=== PATIENT | female | born 1950 | race Caucasian/White ===

== ENCOUNTER 2018-11-27 18:08 | Inpatient (IN) | payer BC ==
[2018-11-27] MEDS ORDERED: NS 0.9% 1000 ML** 2,000 ML IV ONE (18:55)
--- NOTE | 2018-11-27 19:03 | ED ---
Neurological HPI - HPI Summary HPI Summary: A 68 y/o female presents to [facility] with a chief complaint of general weakness. She also reports dizziness, fatigue and a low sodium level. She claims that she can barely walk due to her weakness. She also reports leg swelling, SOB, nausea and loss of appetite. She denies abdominal pain, CP or vomiting. Because of her blood work, she was told to come to the ED for Lasix IV and admission. She has a Hx of CHF. Her PCP is Dr. Tong, and Dr. Wilson is her logistics intern, who ordered the blood test. She lives with her . She reports that she has not had a problem retaining water that was this severe before. - History of Current Complaint Chief Complaint: EDWeakness Stated Complaint: DR SENT FOR SODIUM LEVEL PER PT Time Seen by Provider: 11/27/18 18:55 Hx Obtained From: Patient Onset/Duration: Sudden Onset, Started days ago, Still Present Timing: Constant Onset Severity: Mild Current Severity: Mild Neurological Deficit Location: Generalized Pain Intensity: 0 Pain Scale Used: 0-10 Numeric Character: Weak Aggravating: Nothing Alleviating: Nothing Associated Signs and Symptoms: Positive: Shortness of Breath. Negative: Fever, Chest Pain - Allergy/Home Medications Allergies/Adverse Reactions: Allergies Allergy/AdvReac Type Severity Reaction Status Date / Time codeine Allergy Nausea And Verified 11/27/18 18:14 Vomiting erythromycin base Allergy Vomiting Verified 11/27/18 18:14 latex Allergy Rash Verified 11/27/18 18:14 Penicillins Allergy Vomiting Verified 11/27/18 18:14 [id number]-[id number]-Drl Reductase Allergy Itching Verified 11/27/18 18:14 Inhibitor PMH/Surg Hx/FS Hx/Imm Hx Endocrine/Hematology History: Denies: Hx Diabetes Cardiovascular History: Denies: Hx Hypertension, Hx Pacemaker/ICD History: Denies: Hx Renal Disease Sensory History: Reports: Hx Hearing Aid Denies: Hx Deafness Psychiatric History: Denies: Hx Panic Disorder - Cancer History Hx Chemotherapy: No Hx Radiation Therapy: No - Surgical History Surgery Procedure, Year, and Place: FACIAL - COSMETIC BREAST REDUCTIONS TUBAL LIGATION TONSILECTOMY FIBROIDS - REMOVED FROM UTERUS Infectious Disease History: No Infectious Disease History: Denies: Traveled Outside the [place] in Last 30 Days - Family History Known Family History: Positive: Cardiac Disease - father and mother - Social History Alcohol Use: None Hx Substance Use: No Substance Use Type: Reports: None Hx Tobacco Use: No Smoking Status (MU): Unknown if Ever Smoked Review of Systems Positive: Fatigue. Negative: Fever Negative: Chest Pain Positive: Shortness Of Breath. Negative: Cough Positive: Nausea. Negative: Abdominal Pain, Vomiting Positive: Edema Neurological: Other - positive: dizziness Positive: Weakness All Other Systems Reviewed And Are Negative: Yes Physical Exam - Summary Physical Exam Summary: Appearance: Well-appearing, Well-nourished, lying in bed comfortably Skin: Warm, dry, no obvious rash Eyes: sclera anicteric, no conjunctival pallor ENT: mucous membranes moist, pharynx appears normal Neck: Supple, nontender Respiratory: Clear to auscultation, no signs of respiratory distress Cardiovascular: Normal S1, S2. No murmurs. Normal distal pulses in tibial and radial bilaterally. Abdomen: Soft, nontender, normal active bowel sounds present Musculoskeletal: Normal, Strength/ROM Intact, significant lower extremity pitting edema up to knees. Neurological: A&Ox3, awake and alert, mentation is normal, speech is fluent and appropriate Psychiatric: affect is normal, does not appear anxious or depressed Triage Information Reviewed: Yes Vital Signs On Initial Exam: Initial Vitals Temp Pulse Resp BP Pulse Ox 98.8 F 87 20 83/64 100 11/27/18 18:11 11/27/18 18:11 11/27/18 18:11 11/27/18 18:11 11/27/18 18:11 Vital Signs Reviewed: Yes Diagnostics - Vital Signs Vital Signs Temp Pulse Resp BP Pulse Ox 11/27/18 18:11 98.8 F 87 20 83/64 100 - Laboratory Result Diagrams: 12/01/18 04:53 11/30/18 14:48 Lab Statement: Any lab studies that have been ordered have been reviewed, and results considered in the medical decision making process. - Radiology CXR Radiology Interpretation Completed By: ED Physician Summary of Radiographic Findings: Cardiomegaly. Bilateral small pleural effusions. Mildly diffuse interstitial markings in both lung [place]. Pending official imaging report. - EKG 19:31 Cardiac Rate: NL - 81 bpm EKG Rhythm: Sinus Rhythm Summary of EKG Findings: EKG at 19:31 showed NSR at 81 bpm with PAVB and LBBB. Course/Dx - Course Course Of Treatment: A 68 y/o female presents to [facility] with a chief complaint of general weakness. She also reports dizziness, fatigue, nausea, SOB, edema and a low sodium level. The physical exam revealed significant lower extremity pitting edema up to the knees. In the ED course the patient was given sodium chloride IV and Lasix IV. EKG at 19:31 showed NSR at 81 bpm with PAVB and LBBB. Troponin 0.01, TSH 4.33. CXR showed Cardiomegaly. Bilateral small pleural effusions. Mildly diffuse interstitial markings in both lung [place]. Case discussed with Dr. Gunn, hospitalist, who accepted the patient for admission. The patient is agreeable with this plan. - Diagnoses Provider Diagnoses: Congestive heart failure, Hyponatremia - Physician Notifications Discussed Care Of Patient With: Camryn Gunn Time Discussed With Above Provider: 20:40 Instructed by Provider To: Admit As Inpatient - Critical Care Time Critical Care Time: 30-74 min Discharge - Sign-Out/Discharge Documenting (check all that apply): Patient Departure - admit Patient Received Moderate/Deep Sedation with Procedure: No - Discharge Plan Condition: Fair Disposition: ADMITTED TO [facility] - Billing Disposition and Condition Condition: FAIR Disposition: Admitted to [facility] - Attestation Statements Document Initiated by Scribe: Yes Documenting Scribe: Lalo Dejesus Provider For Whom Rupert is Documenting (Include Credential): London Hendricks MD Scribdontae Attestation: Lalo Manuel, scribed for London Hendricks MD on 12/01/18 at 0539. Scribe Documentation Reviewed: Yes Provider Attestation: The documentation as recorded by the Lalo esquivel accurately reflects the service I personally performed and the decisions made by me, London Hendricks MD Status of Scribe Document: Viewed
[2018-11-27 19:52] LABS: Troponin I 0.01 ng/mL (<0.04)
[2018-11-27 20:10] LABS: TSH (Thyroid Stimulating Horm) 4.33 mcIU/mL (0.34-5.60)
[2018-11-27] MEDS ORDERED: Sodium Chloride 3% HYPERTONIC* 500 ML IVPB ONE ×2 (20:15→21:00)
[2018-11-27] MEDS ORDERED: Furosemide IV* 10 MG/ML VIAL (40 MG) IV ONE (20:16)
[2018-11-27 22:22] LABS: BUN/Creatinine Ratio 23.2 (8-20); Calcium 9.2 mg/dL (8.6-10.3); EGFR Non-African American 58.7 (>60); Potassium 4.4 mmol/L (3.5-5.0)
[2018-11-27] MEDS ORDERED: Acetaminophen TAB* 325 MG PO PRN (22:24)
[2018-11-27 22:27] LABS: Urine Appearance Cloudy; Urine Bacteria Absent (Absent); Urine Bilirubin Negative (Negative); Urine Blood Negative (Negative); Urine Color Straw; Urine Glucose Negative (Negative); Urine Ketones Negative (Negative); Urine Nitrite Negative (Negative); Urine Protein Negative (Negative); Urine Red Blood Cell Trace(0-2/hpf) (Absent); Urine Specific Gravity 1.004 (1.010-1.030); Urine Squamous Epithelial Cell Present (Absent); Urine Urobilinogen Negative (Negative); Urine White Blood Cell Trace(0-5/hpf) (Absent)
[2018-11-27 22:40] LABS: Ur Urea Nitrogen Concentration 142 mg/dL; Urine Sodium Concentration 49 mmol/L
[2018-11-28] MEDS ORDERED: Sodium Chloride 3% HYPERTONIC* 500 ML IVPB ONE (00:01)
[2018-11-28 01:01] LABS: ABS Basophils 0 10^3/ul (0-0.2); ABS Eosinophils 0 10^3/ul (0-0.6); ABS Lymphocytes 0.7 10^3/ul (1.0-4.8); ABS Monocytes 0.5 10^3/ul (0-0.8); ABS Neutrophils 4.5 10^3/ul (1.5-7.7); ABS Nucleated RBC 0 10^3/ul; Eosinophil % 0.6 %; Hematocrit 43 % (33-41); Hemoglobin 14.4 g/dL (12.0-16.0); Lymphocyte % 12.4 %; Mean Corpuscular HGB Conc 33 g/dL (31-36); Mean Corpuscular Hemoglobin 33 pg (27-31); Mean Corpuscular Volume 97 fL (80-97); Mean Platelet Volume 8.8 fL (7.4-10.4); Nucleated Red Blood Cells % 0.1; Platelet Count 183 10^3/uL (150-450); Red Blood Count 4.42 10^6 /uL (3.70-4.87); Red Cell Distribution Width 13 % (10.5-15); White Blood Count 5.7 10^3/uL (3.5-10.8)
[2018-11-28] MEDS: Enoxaparin(*) 40 MG/0.4 ML SYR SUBCUT SCH ×2 (01:11→21:58)
[2018-11-28] MEDS: Potassium Chlor TAB* 20 MEQ TAB.ER PO SCH ×3 (01:13→14:57)
--- NOTE | 2018-11-28 02:41 | HP ---
HISTORY AND PHYSICAL: DATE OF ADMISSION: 11/27/18 PRIMARY CARE PROVIDER: Dick Tong MD MANAGEMENT SERVICES TECHNICIAN: Devendra Flaherty MD CONTACT PERSONS: Patient's daughters, Janneth Weaver, phone number [phone] and Melissa Corey, . CODE STATUS: Full. CHIEF COMPLAINT: Weakness. SOURCE OF INFORMATION: HPI is obtained from the patient and review of medical charts. The patient is a fair to poor historian. HISTORY OF PRESENT ILLNESS: A 68-year-old female with a past medical history of non-ischemic cardiomyopathy, thought to be from hyperthyroidism (medication induced) versus viral with an ejection fraction of 15%, currently not with ICD , mild AI, severe MR, hypothyroidism, who presents with weakness, really subacute for the past 2 to 3 weeks. The patient reports that she has had progressive weakness and actually says she has had intermittent use of her torsemide. She stopped taking her torsemide sometime last week except for one dose over the weekend and she thought that it would "affect the result of her blood work that her cardiologists were asking her to get". She said what looks like chronic hyponatremia associated with her heart failure and has had a difficult time finding an outpatient regimen for it. Nonetheless, she went to get her blood draw today. The sodium was 118, her seismometer operator called her and told her to present to the emergency room for further management. The patient does report weakness, fatigue, and has had increasing volume overload, particularly in her lower extremities. Her weight about 3 weeks ago was 126 pounds and she has been steadily increasing. She is currently at 144 pounds today. She denies shortness of breath. She denies wilman chest pain. Her appetite has been slightly reduced but no nausea, vomiting, diarrhea, or abdominal pain. She denies orthopnea, although sleeps with 2 pillows. No palpitations. ER COURSE: In the emergency room, her vital signs are blood pressure of 83/64, temperature of 98.8, heart rate of 87 sinus, and respiratory rate of 15, and 100 % on room air. Chest x-ray was done, which shows a small left and right pleural effusions at the bases and perivascular cuffing and mild edema. Repeat lab was done that showed sodium level of 115, potassium 4.4, creatinine 0.95. Glucose 110. The patient is A and O x3 and asymptomatic other than weakness. An EKG was done, which showed left bundle-branch block, sinus and frequent VPCs. Troponin is flat. She was given hypertonic saline, 50 mL over 1 hour and started on hypertonic saline gtt after Cardiology was consulted and the hospitalist team was asked to admit the patient. PAST MEDICAL HISTORY: 1. Non-ischemic cardiomyopathy with an ejection fraction of 15% without ICD. 2. Left bundle-branch block. 3. Mild AI. 4. Severe MR. 5. Hypothyroidism. 6. IBS. 7. Spinal stenosis. 8. Chronic regional pain syndrome. PAST SURGICAL HISTORY: 1. Rotator cuff repair. 2. Breast reduction. 3. Fibroid resection. MEDICATIONS: 1. Vitamin B12 of 2500 mcg IM q. 12 days. 2. Diphenhydramine 50 mg p.o. q.h.s. 3. Carvedilol 9.375 mg p.o. b.i.d. 4. Zetia 10 mg p.o. daily. 5. Levothyroxine 112 mcg p.o. daily. 6. Spironolactone 25 mg p.o. daily. 7. Valsartan 20 mg p.o. daily. 8. She should be taking torsemide 10 mg daily, although as per HPI, she stopped taking this sometime last week, only taking it one time on Monday prior to her admission on Monday and "when she feels like it" ALLERGIES: CODEINE, ERYTHROMYCIN, LATEX, PENICILLIN, and STATIN. FAMILY HISTORY: Positive for heart disease in both parents. SOCIAL HISTORY: She is . She lives at home with her and 2 children under the age of 18. 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 She is a lifetime nonsmoker. Social alcohol user with only 1 to 2 weeks per month and a never illicit user. REVIEW OF SYSTEMS: Constitutional: Positive for malaise, negative for fevers and chills. HEENT: Negative for headaches, vision changes, sore throat. Cardiovascular: Negative for chest pain, palpitations, positive for orthopnea. Respiratory: Negative for shortness of breath, cough, or pleuritic chest pain. GI: Negative for nausea, vomiting, diarrhea, abdominal pain. Does have decreased appetite. : Negative for dysuria, hematuria. Musculoskeletal: Negative for new myalgias or arthralgias. Does have chronic low back pain. Positive for weakness. Skin: Negative for rashes or lesions: Neurologic: Negative for focal weakness or numbness. Psychiatric: Negative for depression and anxiety. Endocrine: Negative for polyuria, polydipsia. Heme: Negative for bruising, bleeding, lymphadenopathy. PHYSICAL EXAMINATION GENERAL APPEARANCE: Pleasant, well-appearing woman, in no acute distress, sitting up in bed. She has significant anxiety and perseverates multiple times during our interview on questions about management and did well with redirection. She is A and O x4. VITAL SIGNS: At the time of physical exam are 102/74, heart rate 79, respiratory rate 15, satting 99% on room air. HEENT: She is normocephalic, atraumatic. Pupils are equal and reactive. Extraocular muscles are intact. Sclerae are anicteric. Mouth is with moist mucous membranes. NECK: Supple with no supraclavicular or cervical lymphadenopathy. RESPIRATORY: She is clear to auscultation bilaterally with the exception of slightly diminished bases. CARDIAC: She has soft heart sounds, possibly with S3 and soft 1-2/6 murmur, heard best in mid axillary line. ABDOMEN: Belly is soft, nontender, nondistended with normoactive bowel sounds. NEUROLOGIC: Cranial nerves II through XII are intact. No focal deficits. A and O x3. MUSCULOSKELETAL: She moves all 4 extremities spontaneously. EXTREMITIES: She has 3+ nonpitting edema to bilateral knees with particular edema to dorsal foot surface. She has compression stockings on. SKIN: Without rashes or lesions. DIAGNOSTIC STUDIES/LAB DATA: BMP done here in the hospital is sodium 115, potassium 4.4, chloride 84, carbon dioxide 21, anion gap 10, BUN 22, creatinine 0.95. Glucose 110. Troponin 0.01. TSH 4.33. CBC is pending. EKG shows sinus rhythm with frequent VPCs, left bundle-branch block, which is consistent with prior. Chest x-ray shows small bilateral pleural effusions, perivascular cuffing, otherwise no acute findings. Imaging, labs, and EKG reviewed by myself. ASSESSMENT AND PLAN: This is a 68-year-old female with heart failure with reduced ejection fraction secondary to nonischemic cardiomyopathy with an EF of 15%, valvular disease, hypothyroidism, who presents with weakness, found to be with heart failure exacerbation secondary to diuretic noncompliance and hypervolemic hyponatremia, severe, asymptomatic. 1. Severe hyponatremia, hypervolemic in nature and the patient is asymptomatic. She will be placed on a hypertonic saline drip with a goal of improving sodium by 4 to 6 mEq in the first 4 to 6 hours. She is asymptomatic, so no bolus is started. We will check sodium levels q.4 hours and we will also start diuresis with Lasix along with potassium supplementation. Furthermore, fluid restriction to 1 L will be initiated and can augment diuresis with metolazone p.r.n. A cardiology consult will be placed and the patient will be admitted to the intensive care unit given need for hypertonic saline drip. When sodium improves to 4 to 6 units above 115s, so roughly around 122, possible to manage her with fluid restriction alone and concurrent diuretic use. 2. Heart failure with reduced ejection fraction exacerbation as above. Fluid restriction, low-sodium diet and diuresis. She is roughly 20 pounds above her base weight. Heart failure with reduced ejection fraction secondary to nonischemic cardiomyopathy. 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 Discussed with the patient that cardiac resynchronization therapy would be indicated and she is willing to consider. 3. Hypothyroidism. We will continue her home dose of Synthroid. 4. Back pain and chronic regional pain syndrome. We will offer Tylenol and escalate pain control as needed. 5. DVT prophylaxis. The patient will be given Lovenox. 6. Diet is low salt with 1 L fluid restriction. 7. Disposition. The patient is stable for admission to the intensive care unit for hypertonic saline drip and frequent sodium monitoring. 8. Code status is full. TIME SPENT: Forty-five minutes was spent in the planning of this admission with over half of that spent directly at the bedside with the patient providing direct patient care. The plan of care was discussed with the patient, which includes admission the ICU, careful monitoring over the next 24 hours, and evaluation with Cardiology. She understands and has no further questions. [id number]/CPS #: [id number]
[2018-11-28 04:37] LABS: Calcium 7.7 mg/dL (8.6-10.3); EGFR African American 78.6 (>60); EGFR Non-African American 64.9 (>60)
[2018-11-28] MEDS ORDERED: Furosemide IV* 10 MG/ML VIAL (40 MG) IV SCH ×2 (05:00→06:00)
[2018-11-28] MEDS: Levothyroxine TAB* 112 MCG TAB PO SCH (06:31)
[2018-11-28] MEDS ORDERED: Valsartan TAB* 40 MG PO SCH (09:00)
[2018-11-28] MEDS ORDERED: Spironolactone TAB* 25 MG PO SCH (09:00)
--- NOTE | 2018-11-28 10:07 | PN ---
Date of Service: 11/28/18 - HD 2 Critical Care Services: 68 yo F with CHF, HTN, DM presents to the hospital on 11/27 with complaints of generalized weakness, dizziness, fatigue. She had outpatient blood work with showed a low sodium level and she was told to go to the ED. On evaluation she was hemodynamically stable. Physical exam unremarkable except for lower extremity pitting edema up to knees. Na level 115. She was given Lasix and started on 3% NS gtt. She was admitted to ICU. 11/28: Na corrected to 124 by morning. 3%NS drip stopped. Vital Signs: Temp Pulse Resp BP SpO2 FiO2 97.2 F 87 23 102/57 96 11/28/18 08:00 11/28/18 09:01 11/28/18 09:01 11/28/18 09:01 11/28/18 09:00 Physical Exam: Gen: resting in bed HEENT: intact Lungs: nonlabored Cardiac: RRR Abdomen: nondistended Extremities: warm, dry Neuro: sleeping Fluid Balance (Past 24 Hours): I= O= Net Intake & Output 11/26/18 11/27/18 11/28/18 11/29/18 06:59 06:59 06:59 06:59 Intake Total 577 300 Output Total 700 1100 Balance -123 -800 Weight 154 lb 5.177 oz Intake: IVPB 227 Oral 350 300 Output: Urine 700 1100 Labs: Laboratory Results - last 24 hr 11/27/18 11/27/18 11/27/18 19:27 21:58 22:10 WBC RBC Hgb Hct MCV MCH MCHC RDW Plt Count MPV Neut % (Auto) Lymph % (Auto) [place] % (Auto) Eos % (Auto) Baso % (Auto) Absolute Neuts (auto) Absolute Lymphs (auto) Absolute Monos (auto) Absolute Eos (auto) Absolute Basos (auto) Absolute Nucleated RBC Nucleated RBC % Sodium 115 L* Potassium 4.4 Chloride 84 L Carbon Dioxide 21 L Anion Gap 10 BUN 22 Creatinine 0.95 Est GFR ( Amer) 71.0 Est GFR (Non-Af Amer) 58.7 BUN/Creatinine Ratio 23.2 H Glucose 110 H Lactic Acid Calcium 9.2 Troponin I 0.01 TSH 4.33 Urine Color Straw Urine Appearance Cloudy Urine pH 6.0 Ur Specific [place] 1.004 L Urine Protein Negative Urine Ketones Negative Urine Blood Negative Urine Nitrate Negative Urine Bilirubin Negative Urine Urobilinogen Negative Ur Leukocyte Esterase Trace A Urine WBC (Auto) Trace(0-5/hpf) Urine RBC (Auto) Trace(0-2/hpf) Ur Squamous Epith Cells Present A Urine Bacteria Absent Hyaline Casts Present A U Sodium Concentration Ur Urea Nitrogen Conc Urine Glucose Negative 11/27/18 11/28/18 11/28/18 22:10 00:50 00:50 WBC 5.7 RBC 4.42 Hgb 14.4 Hct 43 H MCV 97 MCH 33 H MCHC 33 RDW 13 Plt Count 183 MPV 8.8 Neut % (Auto) 78.3 Lymph % (Auto) 12.4 [place] % (Auto) 8.3 Eos % (Auto) 0.6 Baso % (Auto) 0.4 Absolute Neuts (auto) 4.5 Absolute Lymphs (auto) 0.7 L Absolute Monos (auto) 0.5 Absolute Eos (auto) 0 Absolute Basos (auto) 0 Absolute Nucleated RBC 0 Nucleated RBC % 0.1 Sodium 118 L* Potassium Chloride Carbon Dioxide Anion Gap BUN Creatinine Est GFR ( Amer) Est GFR (Non-Af Amer) BUN/Creatinine Ratio Glucose Lactic Acid Calcium Troponin I TSH Urine Color Urine Appearance Urine pH Ur Specific [place] Urine Protein Urine Ketones Urine Blood Urine Nitrate Urine Bilirubin Urine Urobilinogen Ur Leukocyte Esterase Urine WBC (Auto) Urine RBC (Auto) Ur Squamous Epith Cells Urine Bacteria Hyaline Casts U Sodium Concentration 49 Ur Urea Nitrogen Conc 142 Urine Glucose 11/28/18 11/28/18 04:11 04:11 WBC RBC Hgb Hct MCV MCH MCHC RDW Plt Count MPV Neut % (Auto) Lymph % (Auto) [place] % (Auto) Eos % (Auto) Baso % (Auto) Absolute Neuts (auto) Absolute Lymphs (auto) Absolute Monos (auto) Absolute Eos (auto) Absolute Basos (auto) Absolute Nucleated RBC Nucleated RBC % Sodium 124 L Potassium 3.0 L Chloride 94 L Carbon Dioxide 25 Anion Gap 5 BUN 20 Creatinine 0.87 Est GFR ( Amer) 78.6 Est GFR (Non-Af Amer) 64.9 BUN/Creatinine Ratio 23.0 H Glucose 100 Lactic Acid 1.0 Calcium 7.7 L Troponin I TSH Urine Color Urine Appearance Urine pH Ur Specific [place] Urine Protein Urine Ketones Urine Blood Urine Nitrate Urine Bilirubin Urine Urobilinogen Ur Leukocyte Esterase Urine WBC (Auto) Urine RBC (Auto) Ur Squamous Epith Cells Urine Bacteria Hyaline Casts U Sodium Concentration Ur Urea Nitrogen Conc Urine Glucose Studies: 11/27 cXR - CHF Nutrition: cardiac diet Impression: 68 yo F with HTN, DM and CHF admitted for hyponatremia. Plan: Cardiovascular:(1) Benign essential HTN, (2) Chronic CHF; (3) AICD in situ -- HR 55-93 -- SBP 67-106 -- Telemetry -- Carvediolol, Valsartan, spironolactone -- Ezetimibe Home meds: Ezetimibe, Carvediolol, Valsartan, spironolactone Pulmonary: No acute issues -- RR 11-24 -- sats 90-100 on RA -- CXR: CHF Home meds: None Gastrointestinal: No acute issues -- diet: cardiac diet -- bowel regimen: None -- ulcer prophylaxis: not indicated at this time Home meds:None Endocrine: Diabetes mellitus -- monitor BGs -- Synthroid Home meds: None Renal: (1) Hypokalemia; (2) Hypocalcemia; (3) Hypervolemia -- UOP: 92 ml/hr -- Cr 0.87 -- Lytes Na 124 from 118 K 3.0, replace Ca 7.7, replace -- Kdur -- Spironolactone -- received lasix x 1 in ED Home meds: None Infectious disease: No acute issues -- Tmax 98.8 -- WBC 5.7 -- Micro 5/1 MRSA screen negative 11/27 UA negative -- ABX None Home meds: None Neurologic: No acute issues -- PRN Tylenol Home meds: Benadryl Hematological: No acute issues -- Hgb 14.4 -- Plt 183 -- DVT prophylaxis: SQ Lovenox Home meds: None Metabolic: No acute issues Home meds: None Other:No acute issues Home meds: Vit B12 Deep vein thrombosis prophylaxis: SQ Lovenox Dietary: not indicated at this time Condition: stable Prognosis: good Code status: full Disposition: transfer to floor Cumulative time spent in the care of this patient (excluding any procedure time) : at least 30 minutes. Patient care included clinical interview (with patient and/or family), bedside exam of the patient, review of labs, x-rays, and other ancillary data, coordination of (respiratory, nursing care, review of patient's records, discussion regarding patients management with involved consultants, primary physician, pharmacists, and other healthcare personnel (dietary, case management , physical/occupational therapy etc.) Critical Care Time: 30 min
[2018-11-28] MEDS: Carvedilol TAB* 6.25 MG PO SCH ×2 (11:32→22:09)
[2018-11-28] MEDS: Ezetimibe TAB* 10 MG PO SCH (11:33)
[2018-11-28 13:58] LABS: BUN/Creatinine Ratio 19.2 (8-20); Calcium 9.2 mg/dL (8.6-10.3); EGFR African American 67.7 (>60); EGFR Non-African American 55.9 (>60)
--- NOTE | 2018-11-28 14:47 | CONS ---
CONSULTATION REPORT: DATE OF CONSULT: 11/28/18 ATTENDING PHYSICIAN: Mandie Rios MD * (DICTATED BY RED HANEY NP) PRIMARY NUTRITION COUNSELOR: Dr. Jc Wilson. PRIMARY PHYSICIAN: Dr. Tong. CHIEF COMPLAINT: Low sodium, shortness of breath, increased leg swelling, and weight gain. HISTORY OF PRESENT ILLNESS: I had the pleasure of seeing Kecia Hannah in consultation. She is a patient well known to myself and Dr. Wilson due to a history of non-ischemic cardiomyopathy, LVEF 19% via echocardiogram, 10/01/18, at [facility], where she was admitted for decompensated systolic dysfunction. She also has a history of severe mitral insufficiency, known complete left bundle branch block, and hypothyroidism. The patient has been experiencing progressive bilateral lower extremity pitting edema with complaints of shortness of breath, weight gain, dizziness, and hyponatremia for the past month. She was seen in our practice on 11/20/18 due to symptomatology. At that point, she had been taking torsemide 10 mg a day with 20 mg daily as needed; however, diuretics were not adjusted at that point due to the need for evaluation of basic metabolic profile. The patient failed to obtain outpatient labs and opted to stop loop diuretic on her own last week. We attempted to contact the patient and bring her in for an emergent visit in our practice on Monday; however, she never returned our phone calls. She had outpatient blood work finally obtained yesterday, which revealed a sodium of 115 , creatinine 0.95. Thus, she was recommended to present to [facility] due to hyponatremia, hypervolemia in the setting of systolic dysfunction with NYHA functional class IV symptoms. The patient received Lasix 40 mg IV x1 and reports gross improvement in bilateral lower extremity edema. She also received NaCl 3% hypertonic drip. Sodium this morning is 124, potassium 3. She denies chest pain. States breathing and leg edema have improved, although she still appreciates some dyspnea and swelling in bilateral lower extremities. The patient had a 15-pound weight gain in the past month. In the past, she has been evaluated by Dr. Wilson, [facility], and Dr. Viera at [facility]. It has been recommended for some time that the patient undergo BiV-ICD; however, she has refused BiV-ICD on numerous occasions citing the desire to have her back evaluated and fixed first before undergoing BiV-ICD implantation. She denies syncope. Does report occasional dizziness. Denies palpitations. Last echocardiogram was 10/01/18 at [facility]. At that time, calculated LVEF was 19%, severe left atrial enlargement, moderate right ventricular enlargement, severe right atrial enlargement, mild aortic insufficiency, no aortic stenosis, no mitral stenosis, severe mitral insufficiency, moderate tricuspid regurgitation. PAST MEDICAL HISTORY: 1. Non-ischemic cardiomyopathy. 2. Severe mitral insufficiency. 3. Complete left bundle branch block. 4. Hypothyroidism. 5. Irritable bowel syndrome. PAST SURGICAL HISTORY: Includes: 1. Breast reduction. 2. Tubal ligation. 3. Tonsillectomy with adenoidectomy. 4. Plastic surgery . 5. Fibroid resection. MEDICATIONS: Home medications include: 1. Coreg 9.375 mg p.o. b.i.d. 2. Valsartan 20 mg a day. 3. Synthroid 112 mcg daily. 4. Zetia 10 mg a day. 5. Torsemide 10 mg daily. 6. Compression stockings. 7. Aldactone 25 mg a day. 8. Vitamin B12 as directed. 9. Coenzyme Q10 100 mg daily ALLERGIES: Listed includes: 1. PENICILLIN, which causes hives. 2. ERYTHROMYCIN causes GI upset. 3. CODEINE causes GI upset. 4. , rash. 5. IODINE, rash. 6. BEE STINGS, hives. 7. SULFA, GI upset. 8. TETRACYCLINE, GI upset. 9. MYCIN, GI upset. 10. MORPHINE, GI upset. 11. AZITHROMYCIN, diarrhea. 12. TORADOL, headache. FAMILY HISTORY: Noncontributory. SOCIAL HISTORY: The patient is , lives at home with her , who is a neurologist practicing in [facility]. 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 She denies tobacco, alcohol, or drug abuse. She ambulates independently. REVIEW OF SYSTEMS: All systems have been reviewed and otherwise negative except what is above mentioned in the HPI. PHYSICAL EXAM: The patient is lying in bed upon entering the room, cooperative with exam, is alert and oriented, in no apparent distress. HEENT: Head is atraumatic, normocephalic. Oral mucosa is moist. Tongue is midline. Neck: Supple. Trachea is midline. No thyromegaly. Positive JVD. Cardiac: Normal S1, S2. Regular rate and rhythm. There is a notable mitral murmur. No rub. Positive gallop. Lungs: Auscultated posteriorly. No evidence of adventitious breath sounds, diminished in bilateral bases, right greater than left. /GI: Abdomen is soft, nontender. Normoactive bowel sounds x4. Extremities: 1+ pedal edema noted bilaterally. Otherwise, no clubbing, no cyanosis. Compression stockings are on bilaterally. Skin: Intact. No evidence of jaundice, rashes, ecchymosis appreciated. DIAGNOSTIC STUDIES/LAB DATA: Blood work obtained 11/28/18, sodium 124, potassium 3, chloride 94, carbon dioxide 25, BUN 20, creatinine 0.87, glucose 100. TSH 4.3. Troponin negative x1. White count 5.7, hemoglobin 14.4, hematocrit 43, platelets 183. ECG, 11/27/18, sinus rhythm with known left bundle branch block, isolated PVC, rate 81. Chest x-ray demonstrates cardiomegaly with right greater than left pleural effusions. ASSESSMENT AND PLAN: 1. Severe left ventricular dysfunction with known history of non-ischemic cardiomyopathy, left ventricular ejection fraction calculated at 19% on echo at [facility], 10/01/18. NYHA functional class IV symptomatology. She is presenting with hyponatremic hypervolemia. Recommend continuing gentle IV diuresis with Lasix 40 mg IV daily. Close monitoring of sodium and potassium. The patient is responding to IV diuresis. She states shortness of breath and swelling is improving. Recommend daily weights with strict intake, output, continuation of Coreg at 9.375 mg p.o. b.i.d., valsartan 20 mg a day, Aldactone 25 mg a day. In the past, the patient has refused Entresto therapy and BiV-ICD. She states that she now is interested in having cardiac resynchronization therapy, thus we will place referral to [facility], where she was previously evaluated in September 2018. She has also refused LifeVest in the past. She does have occasional premature ventricular contractions on telemetry. She is not symptomatic. No evidence of ventricular tachycardia. We will place order for LifeVest. She is interested in potentially going home with LifeVest; however, she would like to speak to the rep first. I personally called and spoke to Torsten Mazariegos, who is agreeable to coming in tomorrow to review LifeVest with the patient. We will follow closely. 2. Severe mitral insufficiency. The patient is on carvedilol therapy, unable to titrate further due to hypotension. Recommend gentle diuresis. The patient has refused BiV-ICD in the past. She states that she is now interested in pursuing cardiac resynchronization therapy. Thus, we will place order through [facility] for the patient to be evaluated at [facility] where she was previously evaluated and recommended to have BiV-ICD. 3. Hyponatremia. Sodium improved today. Defer to hospitalist service. 4. Hypokalemia. The patient is on oral potassium supplement. We will update BMP at noon today. 5. Disposition. Pending course. The patient is full code. We will follow closely. Dr. Rios agrees with the above assessment and plan and has personally seen and examined the patient. RED HANEY NP [id number]/CPS #: [id number] BABAK
[2018-11-28] MEDS ORDERED: Albumin Human 25%* 25 GM/100 ML BTL IV ONE (16:02)
--- NOTE | 2018-11-28 17:01 | PN ---
Cardiology Progress Note Date of Service: 11/28/18 - CC: weakness See full consultation by Celina Young DRY YARD WORKER. The patient states weakness has improved. The patient was surprised to hear her BP was so low. Appetite is good. Vital Signs - 12 hr Temp Pulse Resp BP Pulse Ox 11/28/18 15:55 14 11/28/18 15:20 20 11/28/18 15:01 83 14 52/35 87 11/28/18 15:00 6 55/40 11/28/18 14:03 87 21 80/52 93 11/28/18 14:02 18 67/43 11/28/18 14:00 85 18 59/42 91 11/28/18 13:34 98.3 F 11/28/18 13:00 17 88/55 11/28/18 12:18 9 83/55 11/28/18 12:01 20 11/28/18 12:00 20 11/28/18 11:08 30 86/58 11/28/18 11:01 75 14 98 11/28/18 11:00 14 11/28/18 10:00 93 20 98 11/28/18 09:01 87 23 102/57 11/28/18 09:00 82 20 96 11/28/18 08:30 89 18 96/68 97 11/28/18 08:15 67 17 92/60 98 11/28/18 08:00 97.2 F 69 21 86/53 98 11/28/18 07:45 73 16 87/47 98 ADLs: Meal Record Start: 11/28/18 00: 38 Freq: 09,13,18 Status: Active Protocol: Created 11/28/18 00:38 System (Rec: 11/28/18 00:38 System [id number]) Document 11/28/18 09:00 [id number] (Rec: 11/28/18 09:07 [id number] ICU-C25) Document 11/28/18 13:00 [id number] (Rec: 11/28/18 13:18 [id number] ICU-C25) Intake and Output Start: 11/27/18 18: 14 Freq: Status: Active Protocol: Created 11/27/18 18:14 System (Rec: 11/27/18 18:14 System [id number]) Intake and Output Start: 11/28/18 00: 38 Freq: Q1HR Status: Active Protocol: Created 11/28/18 00:38 System (Rec: 11/28/18 00:38 System ICU-M23) Document 11/28/18 01:00 [id number] (Rec: 11/28/18 02:00 [id number] ICU-M32) Document 11/28/18 03:00 [id number] (Rec: 11/28/18 03:28 [id number] ICU-M32) Document 11/28/18 07:25 [id number] (Rec: 11/28/18 07:25 [id number] ICU-C25) Document 11/28/18 08:32 [id number] (Rec: 11/28/18 08:32 [id number] ICU-C11) Document 11/28/18 09:34 [id number] (Rec: 11/28/18 09:34 [id number] ICU-C25) Document 11/28/18 11:00 [id number] (Rec: 11/28/18 11:12 [id number] ICU-C25) Document 11/28/18 12:00 [id number] (Rec: 11/28/18 12:11 [id number] ICU-C25) Document 11/28/18 13:00 [id number] (Rec: 11/28/18 13:30 [id number] ICU-C25) Document 11/28/18 15:00 [id number] (Rec: 11/28/18 15:57 [id number] ICU-C07) Document 11/28/18 15:58 [id number] (Rec: 11/28/18 15:59 [id number] ICU-C07) P 11/28/18 07:31 66 14 102/46 99 11/28/18 07:15 83 20 104/56 98 11/28/18 07:00 62 14 80/56 94 11/28/18 06:45 67 14 90/58 95 11/28/18 06:30 82 19 94/63 76 11/28/18 06:15 61 11 89/60 98 11/28/18 06:00 67 22 82/62 99 11/28/18 05:45 61 13 88/60 98 11/28/18 05:30 60 13 83/52 97 11/28/18 05:15 59 14 84/54 96 Per nursing 2 L UO today. General: Awoke from sleep, appears comfortable and healthier than her studies. Psych: pleasant and cooperative. Neuro: AAO x 3, [place], grossly normal sensory and motor function on bed exam. Resp: Diminshed BS lung bases. Cor: Distant, S1S2 regular, no murmurs heard Abd: normal bowel sounds, soft, non tender. Ext: Mild edema Laboratory Results - last 24 hr 11/27/18 11/27/18 11/27/18 19:27 21:58 22:10 WBC RBC Hgb Hct MCV MCH MCHC RDW Plt Count MPV Neut % (Auto) Lymph % (Auto) Robeson % (Auto) Eos % (Auto) Baso % (Auto) Absolute Neuts (auto) Absolute Lymphs (auto) Absolute Monos (auto) Absolute Eos (auto) Absolute Basos (auto) Absolute Nucleated RBC Nucleated RBC % Sodium 115 L* Potassium 4.4 Chloride 84 L Carbon Dioxide 21 L Anion Gap 10 BUN 22 Creatinine 0.95 Est GFR ( Amer) 71.0 Est GFR (Non-Af Amer) 58.7 BUN/Creatinine Ratio 23.2 H Glucose 110 H Lactic Acid Calcium 9.2 Troponin I 0.01 TSH 4.33 Urine Color Straw Urine Appearance Cloudy Urine pH 6.0 Ur Specific [place] 1.004 L Urine Protein Negative Urine Ketones Negative Urine Blood Negative Urine Nitrate Negative Urine Bilirubin Negative Urine Urobilinogen Negative Ur Leukocyte Esterase Trace A Urine WBC (Auto) Trace(0-5/hpf) Urine RBC (Auto) Trace(0-2/hpf) Ur Squamous Epith Cells Present A Urine Bacteria Absent Hyaline Casts Present A U Sodium Concentration Ur Urea Nitrogen Conc Urine Glucose Negative 11/27/18 11/28/18 11/28/18 22:10 00:50 00:50 WBC 5.7 RBC 4.42 Hgb 14.4 Hct 43 H MCV 97 MCH 33 H MCHC 33 RDW 13 Plt Count 183 MPV 8.8 Neut % (Auto) 78.3 Lymph % (Auto) 12.4 Robeson % (Auto) 8.3 Eos % (Auto) 0.6 Baso % (Auto) 0.4 Absolute Neuts (auto) 4.5 Absolute Lymphs (auto) 0.7 L Absolute Monos (auto) 0.5 Absolute Eos (auto) 0 Absolute Basos (auto) 0 Absolute Nucleated RBC 0 Nucleated RBC % 0.1 Sodium 118 L* Potassium Chloride Carbon Dioxide Anion Gap BUN Creatinine Est GFR ( Amer) Est GFR (Non-Af Amer) BUN/Creatinine Ratio Glucose Lactic Acid Calcium Troponin I TSH Urine Color Urine Appearance Urine pH Ur Specific [place] Urine Protein Urine Ketones Urine Blood Urine Nitrate Urine Bilirubin Urine Urobilinogen Ur Leukocyte Esterase Urine WBC (Auto) Urine RBC (Auto) Ur Squamous Epith Cells Urine Bacteria Hyaline Casts U Sodium Concentration 49 Ur Urea Nitrogen Conc 142 Urine Glucose 11/28/18 11/28/18 11/28/18 04:11 04:11 13:10 WBC RBC Hgb Hct MCV MCH MCHC RDW Plt Count MPV Neut % (Auto) Lymph % (Auto) Robeson % (Auto) Eos % (Auto) Baso % (Auto) Absolute Neuts (auto) Absolute Lymphs (auto) Absolute Monos (auto) Absolute Eos (auto) Absolute Basos (auto) Absolute Nucleated RBC Nucleated RBC % Sodium 124 L 125 L Potassium 3.0 L 4.0 Chloride 94 L 90 L Carbon Dioxide 25 26 Anion Gap 5 9 BUN 20 19 Creatinine 0.87 0.99 H Est GFR ( Amer) 78.6 67.7 Est GFR (Non-Af Amer) 64.9 55.9 BUN/Creatinine Ratio 23.0 H 19.2 Glucose 100 93 Lactic Acid 1.0 Calcium 7.7 L 9.2 Troponin I TSH Urine Color Urine Appearance Urine pH Ur Specific [place] Urine Protein Urine Ketones Urine Blood Urine Nitrate Urine Bilirubin Urine Urobilinogen Ur Leukocyte Esterase Urine WBC (Auto) Urine RBC (Auto) Ur Squamous Epith Cells Urine Bacteria Hyaline Casts U Sodium Concentration Ur Urea Nitrogen Conc Urine Glucose ECG: NSR 1st degree AVB, LBBB, monitor shows intermittant slow SVT and occ. PVC 's. Echo: [place] September 2018: EF 19%, RV hypokinesis, severe MR, mod - sev TR A/P 68 yo female with nonischemic CM, biventricular CM, MR, TR battling chronic CHF who to date has declined GLOBAL REGULATORY LEAD device. The patient was admitted with increasing RH failure by history and severe hyponatremia on Aldactone, Torsemide in addition to Coreg and Diovan. Possible adjustments in diuretics by the patient, but the patient states to me all adjustments she makes are via instructions from her certified orthotist practice manager and his team. Pt's sodium has improved with hypertonic saline and IV lasix, but bp's have dropped further (and confirmed with manual cuff). Cardiogenic shock: I stopped diuretics. Hold Diovan PRN sbp< 85 sustained (manual cuff). Try to continue Coreg due to PVC's and sVT Hyponatremia: Etiology a combination of CHF iteself and medications. I recommend stopping aldactone indefinitely for now. Will likely need a loop diuretic on discharge, but follow Na+ levels frequently and I would titrate to SOB not LE edema. I informed the patient of the danger of hyponatremia, that it could be life threatening, she states she was made aware of this and understands. CM: I recommended transfer to [place] ([place] for GLOBAL REGULATORY LEAD device and consultation + treatment of cardiogenic shock via CHF specialists now. The patient declined, she is waiting for her daughters to come to [facility] in 2 weeks to assist with her young twins care. I discussed with the patient that I was concerned we would not be able to stabilize her adequately to go home w/o GLOBAL REGULATORY LEAD. I do not think that the patient realizes the degree of her CM and valvular heart disease although she states she understands that she now doesn't have a choice on GLOBAL REGULATORY LEAD. Complex high risk patient at risk for sudden , worsening CHF, shock and recurrent hyponatremia.
[2018-11-28] MEDS ORDERED: Carvedilol TAB* 3.125 MG PO ONE (21:52)
[2018-11-28] MEDS: diPHENhydraMINE PO* 50 MG PO SCH (22:53)
[2018-11-29] MEDS: Levothyroxine TAB* 112 MCG TAB PO SCH (04:07)
[2018-11-29 04:34] LABS: Hematocrit 39 % (35-47); Hemoglobin 13.2 g/dL (12.0-16.0); Mean Corpuscular HGB Conc 34 g/dL (31-36); Mean Corpuscular Hemoglobin 33 pg (27-31); Mean Corpuscular Volume 97 fL (80-97); Mean Platelet Volume 8.6 fL (7.4-10.4); Platelet Count 161 10^3/uL (150-450); Red Blood Count 4.02 10^6 /uL (3.70-4.87); Red Cell Distribution Width 14 % (10.5-15); White Blood Count 4.5 10^3/uL (3.5-10.8)
[2018-11-29 05:06] LABS: Calcium 8.9 mg/dL (8.6-10.3); EGFR African American 75.6 (>60); EGFR Non-African American 62.5 (>60); Potassium 3.6 mmol/L (3.5-5.0)
--- NOTE | 2018-11-29 08:02 | PN ---
Date of Service: 11/29/18 - HD 3 Critical Care Services: 68 yo F with CHF, HTN, DM presents to the hospital on 11/27 with complaints of generalized weakness, dizziness, fatigue. She had outpatient blood work with showed a low sodium level and she was told to go to the ED. On evaluation she was hemodynamically stable. Physical exam unremarkable except for lower extremity pitting edema up to knees. Na level 115. She was given Lasix and started on 3% NS gtt. She was admitted to ICU. 11/28: Na corrected to 124 by morning. 3% NS drip stopped. She developed cardiogenic shock that evening. Seen by cardiology and recommended direct transfer to [place] for AICD/pacemaker but patient refused and wants to go as outpatient. 11/29: No overnight events. Remains hypotensive with SBP in 70s but asymptomatic. Vital Signs: Temp Pulse Resp BP SpO2 FiO2 98.5 F 81 13 77/57 97 11/28/18 23:47 11/29/18 06:36 11/29/18 06:36 11/29/18 06:36 11/29/18 06:36 Physical Exam: Gen: sitting up talking on phone HEENT: intact Lungs: nonlabored Cardiac: RRR Abdomen: nondistended Extremities: moving equally Neuro: alert, oriented Fluid Balance (Past 24 Hours): I= O= Net Intake & Output 11/27/18 11/28/18 11/29/18 11/30/18 06:59 06:59 06:59 06:59 Intake Total 577 1030 Output Total 700 3475 Balance -123 -2445 Weight 154 lb 5.177 oz 141 lb Intake: IVPB 227 Oral 350 1030 Output: Urine 700 3475 Labs: Laboratory Results - last 24 hr 11/28/18 11/29/18 11/29/18 13:10 04:20 04:20 WBC 4.5 RBC 4.02 Hgb 13.2 Hct 39 MCV 97 MCH 33 H MCHC 34 RDW 14 Plt Count 161 MPV 8.6 Sodium 125 L 127 L Potassium 4.0 3.6 Chloride 90 L 94 L Carbon Dioxide 26 24 Anion Gap 9 9 BUN 19 18 Creatinine 0.99 H 0.90 Est GFR ( Amer) 67.7 75.6 Est GFR (Non-Af Amer) 55.9 62.5 BUN/Creatinine Ratio 19.2 20.0 Glucose 93 95 Calcium 9.2 8.9 Studies: 11/27 CXR - CHF Nutrition: heart healthy diet Impression: 68 yo F with HTN, DM and CHF admitted for hyponatremia. Now with cardiogenic shock. Plan: Cardiovascular:(1) Cardiongeic shock; (2) Acute on chronic systolic CHF; (3) hx of Benign essential HTN -- HR 61-105 -- SBP 52-102 -- Telemetry -- Carvediolol -- Ezetimibe Home meds: Ezetimibe, Carvediolol, Valsartan, spironolactone Pulmonary: No acute issues -- RR 6-30 -- sats 82-99 on RA -- CXR: CHF Home meds: None Gastrointestinal: No acute issues -- diet: cardiac diet -- bowel regimen: None -- ulcer prophylaxis: not indicated at this time Home meds:None Endocrine: (1) Diabetes mellitus -- monitor BGs -- Synthroid Home meds: None Renal: (1) Hyponatremia, improving; (2) Hypokalemia, resolved; (3) Hypocalcemia , resolved; (4) Hypervolemia -- UOP: 145 ml/hr -- Cr 0.90 -- Lytes Na 127 from 125 K 3.6 Ca 8.9 -- Kdur -- Spironolactone discontinued by cardiology and not to restart at discharge given severe hyponatremia Home meds: None Infectious disease: No acute issues -- Tmax 98.8 -- WBC 4.5 from 5.7 -- Micro 5/1 MRSA screen negative 11/27 UA negative -- ABX None Home meds: None Neurologic: No acute issues -- PRN Tylenol -- Benadryl at night Home meds: Benadryl Hematological: No acute issues -- Hgb 13.2 from 14.4 -- Plt 161 from 183 -- DVT prophylaxis: SQ Lovenox Home meds: None Metabolic: No acute issues Home meds: None Other: No acute issues Home meds: Vit B12 Deep vein thrombosis prophylaxis: SQ Lovenox Dietary: not indicated at this time Condition: serious Prognosis: guarded Code status: full Disposition: currently refusing direct transfer. Cumulative time spent in the care of this patient (excluding any procedure time) : at least 30 minutes. Patient care included clinical interview (with patient and/or family), bedside exam of the patient, review of labs, x-rays, and other ancillary data, coordination of (respiratory, nursing care, review of patient's records, discussion regarding patients management with involved consultants, primary physician, pharmacists, and other healthcare personnel (dietary, case management , physical/occupational therapy etc.) Critical Care Time: 30 min
[2018-11-29] MEDS: Carvedilol TAB* 6.25 MG PO SCH ×2 (09:49→20:43)
[2018-11-29] MEDS: Ezetimibe TAB* 10 MG PO SCH (09:49)
[2018-11-29] MEDS: Enoxaparin(*) 40 MG/0.4 ML SYR SUBCUT SCH (20:43)
[2018-11-29] MEDS: diPHENhydraMINE PO* 50 MG PO SCH (20:43)
[2018-11-30] MEDS: Levothyroxine TAB* 112 MCG TAB PO SCH (05:27)
[2018-11-30 07:28] LABS: Hematocrit 43 % (35-47); Hemoglobin 14.4 g/dL (12.0-16.0); Mean Corpuscular HGB Conc 34 g/dL (31-36); Mean Corpuscular Hemoglobin 33 pg (27-31); Mean Corpuscular Volume 97 fL (80-97); Mean Platelet Volume 8.8 fL (7.4-10.4); Platelet Count 183 10^3/uL (150-450); Red Blood Count 4.43 10^6 /uL (3.70-4.87); Red Cell Distribution Width 14 % (10.5-15); White Blood Count 6.3 10^3/uL (3.5-10.8)
[2018-11-30 07:44] LABS: BUN/Creatinine Ratio 20.7 (8-20); Blood Urea Nitrogen 18 mg/dL (6-24); CO2 Carbon Dioxide 21 mmol/L (22-32); Calcium 8.8 mg/dL (8.6-10.3); Chloride 94 mmol/L (101-111); EGFR African American 78.6 (>60); EGFR Non-African American 64.9 (>60); Glucose 114 mg/dL (70-100); Sodium 125 mmol/L (135-145)
[2018-11-30 09:27] LABS: Anion Gap 10 mmol/L (2-11)
[2018-11-30] MEDS: Ezetimibe TAB* 10 MG PO SCH (10:00)
[2018-11-30] MEDS: Carvedilol TAB* 6.25 MG PO SCH ×2 (10:00→21:00)
--- NOTE | 2018-11-30 15:56 | PN ---
Subjective Date of Service: 11/30/18 Interval History: Kecia feels terrible. She complains of nausea, weakness, and exhaustion from getting dressed. She complains of overwhelming anxiety. When I bring up things like a lifevest, she is unwilling to even discuss. Objective Active Medications: Acetaminophen (Tylenol Tab*) 650 mg PO Q6H PRN PRN Reason: FEVER/PAIN Last Admin: 11/28/18 01:13 Dose: 650 mg Carvedilol (Coreg Tab*) 9.375 mg PO BID [facility] Last Admin: 11/30/18 10:00 Dose: 9.375 mg Diphenhydramine HCl (Benadryl Po*) 50 mg PO BEDTIME [facility] Last Admin: 11/29/18 20:43 Dose: 50 mg Ezetimibe (Zetia Tab*) 10 mg PO DAILY [facility] Last Admin: 11/30/18 10:00 Dose: 10 mg Enoxaparin Sodium (Lovenox(*)) 40 mg SUBCUT BEDTIME [facility] Last Admin: 11/29/18 20:43 Dose: 40 mg Levothyroxine Sodium (Synthroid Tab*) 112 mcg PO DAILY@0600 [facility] Last Admin: 11/30/18 05:27 Dose: 112 mcg Torsemide (Demadex*) 10 mg PO DAILY [facility] Vital Signs - 8 hr 11/30/18 11/30/18 08:00 11:17 Temperature 97.9 F Pulse Rate 88 Respiratory 18 19 Rate Blood Pressure 72/54 (mmHg) O2 Sat by Pulse 97 Oximetry Oxygen Devices in Use Now: None Appearance: ill appearing, sitting on the edge of the bed leaning over her table Eyes: No Scleral Icterus Ears/Nose/Mouth/Throat: NL Teeth, Lips, Gums Neck: - - distended jugular veins Respiratory: - - decreased breath sounds both bases, good air movement otherwise Cardiovascular: - - RRR, ?S3 Abdominal: - - mildly distended Lymphatic: No Cervical Adenopathy Extremities: - - 2+ edema to knees Neurological: Alert and Oriented x 3, - - normal gait, walks with me to the hallway and is exhausted when we come back Result Diagrams: 11/30/18 07:15 11/30/18 14:48 Microbiology and Other Data: Microbiology 11/27/18 22:10 Urine Culture - Final Urine 11/28/18 00:50 Nasal Screen MRSA (PCR) - Final Nasal Mrsa Not Detected Assess/Plan/Problems-Billing Assessment: This is a 68 year old female with a NICM with bi-v heart failure and NYHA class IV symptoms who was admitted with acute on chronic hyponatremia and has refused transfer to a higher level of care - Patient Problems (1) Acute on chronic systolic (congestive) heart failure Current Visit: Yes Status: Acute Code(s): I50.23 - ACUTE ON CHRONIC SYSTOLIC (CONGESTIVE) HEART FAILURE SNOMED Code(s): 574237585 Comment: now that potassium has normalized and sodium is back to baseline, will resume torsemide favor observing her overnight while resuming diuretics given recent shock and current bp 70s/50s continue coreg holding arb and aldactone she needs a lifevest and transfer to a higher level of care for cardiac resynchronization therapy and a biv icd but she has refused all of these things I explained that she is at risk of a fatal arrhythmia and she disagrees (2) Hyponatremia Current Visit: Yes Status: Acute Code(s): E87.1 - HYPO-OSMOLALITY AND HYPONATREMIA SNOMED Code(s): 83249260 Comment: hypervolemic improving and back to baseline (3) Anxiety Current Visit: Yes Status: Acute Code(s): F41.9 - ANXIETY DISORDER, UNSPECIFIED SNOMED Code(s): 87252067 Comment: will start ativan
[2018-11-30] MEDS ORDERED: Lorazepam PYXIS KEY PRN (16:03)
[2018-11-30] MEDS ORDERED: LORazepam INJ* 2 MG/ML 1 ML VIAL IV PUSH PRN (16:03)
[2018-11-30] MEDS: Torsemide TAB 10 MG PO SCH (18:38)
[2018-11-30] MEDS ORDERED: LORazepam TAB(*) 1 MG PO PRN (20:25)
[2018-11-30] MEDS: Enoxaparin(*) 40 MG/0.4 ML SYR SUBCUT SCH (21:49)
[2018-11-30] MEDS: diPHENhydraMINE PO* 50 MG PO SCH (21:50)
[2018-12-01] MEDS: Levothyroxine TAB* 112 MCG TAB PO SCH (05:26)
[2018-12-01 05:27] LABS: Hematocrit 41 % (35-47); Hemoglobin 13.6 g/dL (12.0-16.0); Mean Corpuscular HGB Conc 34 g/dL (31-36); Mean Corpuscular Hemoglobin 33 pg (27-31); Mean Corpuscular Volume 97 fL (80-97); Mean Platelet Volume 8.8 fL (7.4-10.4); Platelet Count 162 10^3/uL (150-450); Red Blood Count 4.18 10^6 /uL (3.70-4.87); Red Cell Distribution Width 14 % (10.5-15); White Blood Count 5.6 10^3/uL (3.5-10.8)
[2018-12-01 05:47] LABS: BUN/Creatinine Ratio 24.8 (8-20); Calcium 9.2 mg/dL (8.6-10.3); EGFR African American 66.2 (>60); EGFR Non-African American 54.7 (>60); Magnesium 1.9 mg/dL (1.9-2.7)
[2018-12-01 07:31] VITALS: BP 90/68
[2018-12-01] MEDS: Carvedilol TAB* 6.25 MG PO SCH (07:32)
[2018-12-01] MEDS: Ezetimibe TAB* 10 MG PO SCH (08:41)
[2018-12-01] MEDS: Torsemide TAB 10 MG PO SCH (08:41)
[2018-12-01] MEDS ORDERED: Torsemide TAB 10 MG PO SCH (09:00)
--- NOTE | 2018-12-01 13:29 | DS ---
CC: Dr. Dick Tong; Dr. Rios; Dr. Wilson; Dr. Cuevas; CORINNA Sanon from Cardiology DISCHARGE SUMMARY: DATE OF ADMISSION: 11/27/18 DATE OF DISCHARGE TO HOME: 12/01/18 PRIMARY CARE PROVIDER: Dr. Dick Tong. CONDITION AT DISCHARGE: Improved and stable. DISCHARGE DIAGNOSIS: Hyponatremia due to acute exacerbation of chronic systolic congestive heart david lure. SECONDARY DIAGNOSES: 1. History of nonischemic cardiomyopathy with ejection fraction of 19%. 2. History of severe mitral insufficiency. 3. History of incomplete left bundle-branch block. 4. History of hypothyroidism. 5. History of anxiety. MEDICATIONS AT DISCHARGE: Include: 1. Torsemide 10 mg daily. 2. Levothyroxine 112 mcg daily. 3. Zetia 10 mg daily. 4. Benadryl 50 mg at bedtime. 5. Vitamin B12 2500 mcg IM every 10 to 12 days as previously ordered. 6. Coreg as previously taken at 9.375 mg b.i.d. 7. The patient's Aldactone was discontinued during the hospital stay. 8. The patient's Diovan was held due to low blood pressures at discharge. At discharge, the patient recommended to follow up with sodium level to be obtained in 3 days, on Mon as previously ordered. The patient is also to follow up with Dr. Wilson later on this week with an appointment that is noemy bernal previously scheduled. The patient has an appointment at [facility] on 12/10/[address] acement. The patient will set up with oxygen at 2 L for her to use as needed for shortness of breath. The pat ient was also recommended to follow up with primary care provider Dr. Tong in approximately 4 to 7 d ays. LABORATORY DATA AND STUDIES PERFORMED DURING THE HOSPITAL STAY: Included: Please note that patient's sodium at admission was 115. Today, on 12/01/18, sodium of 122, potassium 4.0, chloride 91, carbon dioxide 20, BUN 25, creatinine 1.01. CBC: White blood cell count of 5.6, hemoglobin of 13.6, hematocrit of 41, and platelets of 162. Portable chest x-ray last obtained on 11/27/18, impression: "Findings suggestive of congestive heart failure." HOSPITALIZATION COURSE: Kecia Hannah is a 68-year-old female with history of nonischemic cardiomyopathy with EF of 19%, who has had problems with compensated heart failure in the past couple of months. S he was hospitalized at [facility]. She came into the hospital after she was noted to have an outpatient lab work with sodium level below 120. She was admitted to the intensive care unit and was treated with 3% saline. Cardiology was consulted with Dr. Rios. The recommendation was to s top patient's Aldactone and hold valsartan if the patient's blood pressure continues to be low. The patient's torsemide was restarted gently with good results, although the patient from time to time wo uld refuse to take torsemide. The patient also had significant amount of anxiety, but had refused A tivan that was ordered. During the patient's hospital stay, the patient was offered to be transferre d [facility] a [facility] for cardiac resynchronization procedure and biventricular pacer. She ref used that. The patient also refused to have a LifeVest throughout her hospital stay and at discharge . She is aware of the risk of sudden cardiac and she opts not to be emergently evaluated for b iventricular pacemaker and not to use LifeVest. Her oxygen saturation is actually good, but I suspec t patient may have desaturation at night. During her hospital stay, we unfortunately did not check h er overnight pulse oximetry which would be good for the patient to have arranged as outpatient. The patient wishes to go home today, she feels well and she wants to follow up with her primary cardiolo gist, Dr. Wilson, this week and the [facility] for biventricular pacer placement on . She was educated about cardiac diet and daily weights. Her weight at discharge is 150 pounds and 9 o unces. Please note that the patient's sodium decreased slightly today comparing with yesterday, but she refused her torsemide dose yesterday. At this point, unfortunately it appears that patient defin itely needs to go to a [facility] for further evaluation and treatment which she adamantly refuses and further hospitalization is in our facility will not bring any better results at this poin t. She appears optimized, but she is very frail overall. She is aware that if her condition gets wo rse, her shortness of breath gets worse or her weight starts increasing, she is to come into the [facility] department for further evaluation. PHYSICAL EXAM AT THE TIME OF DISCHARGE: Blood pressure of 90/68, heart rate of 79 and regular, respi ratory rate 18, oxygen saturation 99% on 2 L oxygen nasal cannula, temperature 97.5. General: The giuseppe nix is pleasant 68-year-old female who is not in acute distress. Alert and oriented x3. HEENT: Head is atraumatic and normocephalic. Eyes: Pupils equal and reactive to light and accommodation. O ropharynx clear. Mucosa moist. Neck: Supple. No bruit. No adenopathy bilaterally. Cardiovascula r: Regular rate and rhythm. No murmurs. Respiratory: Clear to auscultation bilaterally. Abdomen: Soft, nontender. Positive bowel sounds present in all 4 quadrants. Extremities: There is +1 pitti ng pedal edema bilaterally. Pulses are +2 bilaterally. No clubbing or cyanosis. Neuro Evaluation: Speech is clear. Cranial nerves II through XII grossly intact. Motor strength is 5/5 bilaterally. Please also note that the patient is going to be discharged on oxygen to use as needed at 2 L when sh ortness of breath develops. The patient unfortunately did not qualify for oxygen during her hospital stay, but she is able to pay for it out of pocket and that was arranged with [facility] Please also note that the patient's discharge was discussed with Dr. Cuevas from Cardiology Service, w ho agrees with it. Please note that this is a short summary of the patient's hospitalization. Please refer to further edical records for details. TIME SPENT: Approximately 45 minutes was spent on the patient's discharge. [id number]/[facility] #: [id number]
== END 2018-12-01 12:18 | disposition home or self-care (01) | DRG 194 ==
LOC: ED 18:08 → ICU 23:04 → MEDTELE 11-29 12:43
PROVIDERS: ADMIT Internal Medicine; ATTEND Internal Medicine
DX: I11.0 Hypertensive heart disease with heart failure (principal); R57.0 Cardiogenic shock; I47.1 Supraventricular tachycardia; E87.1 Hypo-osmolality and hyponatremia; I50.23 Acute on chronic systolic (congestive) heart failure; I42.8 Other cardiomyopathies; E03.9 Hypothyroidism, unspecified; I44.7 Left bundle-branch block, unspecified; H91.90 Unspecified hearing loss, unspecified ear; F41.9 Anxiety disorder, unspecified; K58.9 Irritable bowel syndrome, unspecified; G89.4 Chronic pain syndrome; M48.00 Spinal stenosis, site unspecified; I08.3 Combined rheumatic disorders of mitral, aortic and tricuspid valves; E87.6 Hypokalemia; E83.51 Hypocalcemia; Z88.5 Allergy status to narcotic agent; Z91.14 Patient's other noncompliance with medication regimen; Z88.0 Allergy status to penicillin; Z88.8 Allergy status to other drugs, medicaments and biological substances; Z88.1 Allergy status to other antibiotic agents; Z91.040 Latex allergy status; Z97.4 Presence of external hearing-aid; Z82.49 Family history of ischemic heart disease and other diseases of the circulatory system; Z98.51 Tubal ligation status
CPT/HCPCS: 36415; 71046; 80048; 81003; 81015; 83605; 83735; 83935; 84132; 84300; 84443; 84484; 84540; 85025; 85027; 87086; 87641; 93005; 99285; A9270-GY; G8978-GP-CK; G8979-GP-CI; J1650; J1940; J2060

== ENCOUNTER 2018-12-04 18:06 | Inpatient (IN) | payer BC ==
--- NOTE | 2018-12-04 18:32 | ED ---
Lower Extremity - HPI Summary HPI Summary: Pt is a 68 y/o F presenting to the ED with a chief complaint of high sodium. She had bloodwork done this morning and was instructed to come to the ED due to her sodium level being at 116. She presently reports weakness and LE edema. She denies headache, blurred vision, and chest pain. She had an MRI of her back yesterday, and is having surgery on 11/10/18 to have a pacemaker placed. - History of Current Complaint Chief Complaint: EDWeakness Stated Complaint: CRITICAL LABS PER PT Time Seen by Provider: 12/04/18 18:21 Hx Obtained From: Patient Mechanism Of Injury: Other - edema, fluid retention Severity Initially: Mild Severity Currently: None Pain Intensity: 0 Pain Scale Used: 0-10 Numeric Timing: Constant, Lasting Days Location: Is Diffuse - lower extremity Associated Signs And Symptoms: Positive: Swelling, Weakness - Allergies/Home Medications Allergies/Adverse Reactions: Allergies Allergy/AdvReac Type Severity Reaction Status Date / Time codeine Allergy Nausea And Verified 11/27/18 18:14 Vomiting erythromycin base Allergy Vomiting Verified 11/27/18 18:14 latex Allergy Rash Verified 11/27/18 18:14 Penicillins Allergy Vomiting Verified 11/27/18 18:14 [id number]-Aty-Ouu Reductase Allergy Itching Verified 11/27/18 18:14 Inhibitor antibiotics Allergy Unknown Uncoded 12/04/18 18:14 Reaction Details PMH/Surg Hx/FS Hx/Imm Hx Previously Healthy: Yes Endocrine/Hematology History: Reports: Hx Thyroid Disease - Hypothyroid Denies: Hx Diabetes Cardiovascular History: Reports: Hx Congestive Heart Failure, Hx Valvular Heart Disease - Severe mitral regurg, Mild aortic insufficiency Denies: Hx Hypertension, Hx Pacemaker/ICD History: Denies: Hx Renal Disease Sensory History: Reports: Hx Hearing Aid Denies: Hx Contacts or Glasses, Hx Deafness Opthamlomology History: Denies: Hx Contacts or Glasses Psychiatric History: Denies: Hx Panic Disorder - Cancer History Hx Chemotherapy: No Hx Radiation Therapy: No - Surgical History Surgery Procedure, Year, and Place: FACIAL - COSMETIC BREAST REDUCTIONS TUBAL LIGATION TONSILECTOMY FIBROIDS - REMOVED FROM UTERUS Infectious Disease History: No Infectious Disease History: Denies: Traveled Outside the [place] in Last 30 Days - Family History Known Family History: Positive: Cardiac Disease - father and mother - Social History Alcohol Use: None Hx Substance Use: No Substance Use Type: Reports: None Hx Tobacco Use: No Smoking Status (MU): Never Smoked Tobacco Review of Systems Negative: Blurred Vision Negative: Chest Pain Positive: Edema Positive: Weakness. Negative: Headache All Other Systems Reviewed And Are Negative: Yes Physical Exam - Summary Physical Exam Summary: VITAL SIGNS: Reviewed. GENERAL: Patient is a well-developed and nourished female who is lying comfortable in the stretcher. Patient is not in any acute respiratory distress. HEAD AND FACE: No signs of trauma. No ecchymosis, hematomas or skull depressions. No sinus tenderness. EYES: PERRLA, EOMI x 2, No injected conjunctiva, no nystagmus. EARS: Hearing grossly intact. Ear canals and tympanic membranes are within normal limits. MOUTH: Oropharynx within normal limits. NECK: Supple, trachea is midline, no adenopathy, no JVD, no carotid bruit, no c- spine tenderness, neck with full ROM. CHEST: Symmetric, no tenderness at palpation LUNGS: Clear to auscultation bilaterally. No wheezing or crackles. CVS: Regular rate and rhythm, S1 and S2 present, no murmurs or gallops appreciated. ABDOMEN: Soft, non-tender. No signs of distention. No rebound no guarding, and no masses palpated. Bowel sounds are normal. EXTREMITIES: FROM in all major joints, no cyanosis or clubbing. Bilateral LE edema. NEURO: Alert and oriented x 3. No acute neurological deficits. Speech is normal and follows commands. SKIN: Dry and warm Triage Information Reviewed: Yes Vital Signs On Initial Exam: Initial Vitals Temp Pulse Resp BP Pulse Ox 97.7 F 69 18 89/59 98 12/04/18 18:11 12/04/18 18:11 12/04/18 18:11 12/04/18 18:11 12/04/18 18:11 Vital Signs Reviewed: Yes Diagnostics - Vital Signs Vital Signs Temp Pulse Resp BP Pulse Ox 12/04/18 18:11 97.7 F 69 18 89/59 98 - Laboratory Result Diagrams: 12/04/18 18:32 12/04/18 18:32 Lab Statement: Any lab studies that have been ordered have been reviewed, and results considered in the medical decision making process. - Radiology CXR Radiology Interpretation Completed By: ED Physician - EKG 1850 Cardiac Rate: NL - 75bpm EKG Rhythm: Sinus Rhythm ST Segment: Normal Ectopy: PACs EKG Comparison: No Significant Change Summary of EKG Findings: EKG at 1850 shows NSR at 75bpm with PACs, no STEMI, and no acute changes from 11/27/18. Lower Extremity Course/Dx - Course Assessment/Plan: This patient is a 68-year-old female who presents to the emergency department with a chief complaint of weakness for which the patient had blood work this morning with her primary care physician. They noticed that her sodium level is low again, therefore they asked her to come to the ED for further workup and management. Patient denies any headache, blurred vision, chest pain or heart palpitations. Denies any abdominal pain nausea vomiting or diarrhea. She has no other complaints. Past medical history significant for CHF, anxiety, hyponatremia. Blood test results without any significant abnormality except for sodium of 116, chloride is 84, anion gap is 12, BUN is 35 , creatinine 1.25, pulse 109, serum osmolality of 260, BNP 1300, globally 1.9 and total protein 5.9 and lipase 101. I discuss my physical exam, findings and test results with Dr. Andrews from the hospitalist services and she agrees to admit patient to her services. Patient is hemodynamically stable alert and oriented x 3. - Diagnoses Provider Diagnoses: Hyponatremia, Renal insufficiency, CHF (congestive heart failure) Discharge - Sign-Out/Discharge Documenting (check all that apply): Patient Departure - Discharge Plan Condition: Stable Disposition: ADMITTED TO [facility] Referrals: Dick Tong MD [Primary Care Provider] - - Billing Disposition and Condition Condition: STABLE Disposition: Admitted to [facility] - Attestation Statements Document Initiated by Rupert: Yes Documenting Scribe: Haley Alvarenga Provider For Whom Rupert is Documenting (Include Credential): Tommy Hager MD. Scribe Attestation: IHaley, hunteribed for Tommy Hager MD. on 12/04/18 at 2100. Scribe Documentation Reviewed: Yes Provider Attestation: The documentation as recorded by the Haley esquivel accurately reflects the service I personally performed and the decisions made by me, Tommy Hager MD. Status of Scribe Document: Viewed Consult Consult: 2001 - I spoke to Dr. Andrews about the pt's present condition who will be admitting the pt to [facility] with dx including hyponatremia and renal insufficiency.
[2018-12-04 19:02] LABS: Hematocrit 43 % (35-47); Hemoglobin 14.4 g/dL (12.0-16.0); Mean Corpuscular HGB Conc 34 g/dL (31-36); Mean Corpuscular Hemoglobin 33 pg (27-31); Mean Corpuscular Volume 96 fL (80-97); Mean Platelet Volume 9.1 fL (7.4-10.4); Platelet Count 182 10^3/uL (150-450); Red Blood Count 4.42 10^6 /uL (3.70-4.87); Red Cell Distribution Width 13 % (10.5-15); White Blood Count 5.8 10^3/uL (3.5-10.8)
[2018-12-04 19:11] LABS: Activated Partial Thrombo Time 28.3 seconds (26.0-36.3); INR 1.3 (0.82-1.09)
[2018-12-04 19:21] LABS: ABS Eosinophils 0.1 10^3/ul (0-0.6); ABS Lymphocytes 0.6 10^3/ul (1.0-4.8); ABS Monocytes 0.5 10^3/ul (0-0.8); ABS Neutrophils 4.6 10^3/ul (1.5-7.7); Albumin/Globulin Ratio 2.1 (1-3); C Reactive Protein 5.68 mg/L (<8.01); Calcium 9.6 mg/dL (8.6-10.3); EGFR African American 51.7 (>60); EGFR Non-African American 42.7 (>60); Eosinophil % 1.3 %; Globulin 1.9 g/dL (2-4); Lymphocyte % 10.2 %; Magnesium 1.9 mg/dL (1.9-2.7); Nucleated Red Blood Cells % 0.1; Potassium 4.3 mmol/L (3.5-5.0); Total Bilirubin 1.2 mg/dL (0.2-1.0); Total Protein 5.9 g/dL (6.4-8.9); Troponin I 0.03 ng/mL (<0.04)
[2018-12-04] MEDS ORDERED: NS 0.9% 1000 ML** 1,000 ML IV SCH (20:30)
[2018-12-04] MEDS ORDERED: Furosemide IV* 10 MG/ML 10 ML VIAL (100 MG) IV ONE (21:07)
[2018-12-04] MEDS ORDERED: Al Hydrox/Mg Hydrox/Simet LIQ* 30 ML UDC PO PRN (21:15)
[2018-12-04] MEDS ORDERED: Ondansetron INJ* 2 MG/ML VIAL IV PRN (21:15)
[2018-12-04] MEDS ORDERED: Acetaminophen TAB* 325 MG PO PRN (21:15)
[2018-12-04 21:58] LABS: TSH (Thyroid Stimulating Horm) 3.74 mcIU/mL (0.34-5.60)
[2018-12-04] MEDS ORDERED: diPHENhydraMINE PO* 50 MG PO PRN (23:19)
[2018-12-04] MEDS: Heparin VIAL(*) 5000 UNITS/ML VIAL (FIVE THOUSAND) SUBCUT SCH (23:32)
[2018-12-04] MEDS: Carvedilol TAB* 6.25 MG PO SCH (23:32)
--- NOTE | 2018-12-04 23:59 | HP ---
CC: Dr. Dick Tong; Dr. Jc Wilson * HISTORY AND PHYSICAL: DATE OF ADMISSION: 12/04/18 TIME OF EVALUATION: 2100 PRIMARY CARE PHYSICIAN: Dick Tong MD. CARDIOLOGY: Jc Wilson MD. CHIEF COMPLAINT: Weakness and abnormal blood work. HISTORY OF PRESENT ILLNESS: This is a 68-year-old female with a past medical history of nonischemic cardiomyopathy with an ejection fraction of 15% with severe MR, who has been followed very closely by the cardiology service and Dr. Wilson, who was recently discharged on 12/01/18 for sodium related to her congestive heart failure, who had a followup BMP today that had a sodium resulted of 116. She was told by the cardiology office to go to the emergency room for further workup. She states since her discharge she continues to be weak. She has been nauseous, fatigued with a headache. She continues to have dyspnea on exertion. No chest pain. No lower extremity cramping. No vomiting or diarrhea. She does not weigh herself daily. She states normally on a good day she weighs 134. Currently, she weighs 145 pounds. Her legs are more swollen. She denies any fevers. No cold. She does have a sore throat. She does admit to missing some doses since her discharge on 12/01/18 because she was so nauseated. She states yesterday, 12/03/18, she went to get an MRI of her back before she is planning to get her pacemaker put in and she took a Valium. She missed her medications and she was out of it, and she only took a few medications in the morning. She has not been taking her torsemide because of her nausea. The patient is planning to get a biventricular pacemaker at [place] on 12/10/18. Otherwise, remaining review of systems negative. In the emergency room, the patient had labs, imaging, and she was referred to the hospitalist service for further evaluation. PAST MEDICAL HISTORY: 1. History of nonischemic cardiomyopathy with an ejection fraction of 15%, followed by Dr. Wilson. 2. History of left bundle-branch block. 3. Severe mitral insufficiency. 4. Hypothyroidism. 5. History of spinal stenosis. 6. History of chronic regional pain syndrome. 7. History of noncompliance. 8. Kyphoscoliosis. Admission from 11/27/18 to 12/01/18 for hyponatremia related to acute decompensated congestive heart failure. MEDICATIONS: Again, the patient states she has not been taking her medications. The meds she states she is on seemed to be different from what she was discharged home on as they said to stop the spironolactone, so I recommend following up with the cardiology service to confirm. 1. Torsemide 10 mg p.o. daily. 2. Coreg. b.i.d. 3. Zetia 10 mg daily. 4. Spironolactone 25 mg daily. 5. Synthroid 112 mcg daily. 6. Diovan 20 mg daily. ALLERGIES: CODEINE, ERYTHROMYCIN, LATEX, PENICILLIN, STATINS, and ANTIBIOTICS. SOCIAL HISTORY: The patient lives at home with her two 8-year-old twins. She has 3 older children. Her 2 daughters Guillermina and Melissa are her healthcare proxies. No history of smoking. No illicit drugs. No recent alcohol use. She is independent of her ADLs. She has a lot of help at home including housekeepers and a nanny for her twins. Code status: Full code. Also of note, her is often out of town. He works as a neurosurgeon. FAMILY HISTORY: Reviewed and positive for heart disease in both parents. REVIEW OF SYSTEMS: A 14-point review of systems as mentioned in the HPI, otherwise negative. PHYSICAL EXAMINATION GENERAL: In no acute distress. Resting comfortably. VITAL SIGNS: Temp 97.7, pulse rate 79, respiratory rate 18, oxygen saturation 98% on room air, blood pressure 91/70. HEENT: Head: Normocephalic. Pupils equal and reactive. Oropharynx: Mucous membranes moist. No erythema in the posterior oropharynx. NECK: Supple. No lymphadenopathy. RESPIRATORY: Bibasilar rales with some intermittent wheezing. No increased work of breathing. No retractions. CARDIAC: Regular rate and rhythm. Systolic murmur most prominent at the apex. ABDOMEN: Some mild distention, nontender, soft. EXTREMITIES: Significant lower extremity edema, pitting, distal pulses. NEUROLOGIC: Alert and oriented x3. No gross focal neurologic deficits. LABORATORY DATA/DIAGNOSTIC STUDIES: White count 5.8, hemoglobin 14.4, hematocrit 43, platelets 182. INR is 1.3. Sodium 116, potassium 4.3, chloride 84, bicarb 20, BUN 35, glucose 109. Serum osmolality is 260. BNP is greater than 1300. Lipase is 101. Chest x-ray shows a mild pulmonary congestion. EKG shows a left bundle, sinus, with PACs. ASSESSMENT: This is a 68-year-old female with a past medical history of nonischemic cardiomyopathy with noncompliance, who presents to the emergency room after having abnormal labs, found to have a sodium of 116. 1. Hyponatremia. Assessment: This clearly seems to be another incident of hypoosmolar hyponatremia related to her acute decompensated congestive heart failure. Plan : We will admit her to the ICU to monitor a slow gradual rise in her sodium. We will avoid hypertonic saline for now to avoid further worsening her heart failure and start her on Lasix and continue gentle diuresis as we follow her sodium levels. We will also Loki wrap her lower extremities, fluid restrict her with a low-salt diet and check daily weights. I did speak with Dr. Wilson briefly who knows the patient very well. He discussed the possibility of transferring her, when she is tuned up, to [place] when she is more stable for her biventricular pacer scheduled on 12/10/18. 2. Chronic medical problems. Nonischemic cardiomyopathy. I suspect with her noncompliance, she is now in acute decompensated heart failure. Her med regimen is not entirely clear between her recent discharge and her noncompliance. Plan: Due to resolved blood pressures and gentle diuresing, I am going to just start her on carvedilol lower dose at 6.25, hold her spironolactone and her Diovan and follow with Cardiology regarding appropriate cardiac medication management for her. 3. Slight bump in her creatinine. This was likely related to acute decompensated heart failure, could be related to the addition of Diovan that she may or may not have been taking, it is not entirely clear. We will hold the Diovan and repeat labs in the morning. 4. Hypothyroidism. Resume her Synthroid. We will check TSH in the setting of her hyponatremia. 5. FEN: Low-salt, fluid-restricted diet. 6. DVT prophylaxis: The patient scores high risk. We will place her on heparin subcu t.i.d. 7. Code status: Full code. PATIENT TIME: Greater than 50 minutes were spent doing the history and physical , more than half the time spent in direct patient contact and critical care time. [id number]/[facility] #: [id number] [facility]QUARE HOSPITALKristen
[2018-12-05 01:27] LABS: Urine Appearance Clear; Urine Bilirubin Negative (Negative); Urine Blood Negative (Negative); Urine Color Straw; Urine Glucose Negative (Negative); Urine Ketones Negative (Negative); Urine Nitrite Negative (Negative); Urine Protein Negative (Negative); Urine Specific Gravity 1.004 (1.010-1.030); Urine Urobilinogen Negative (Negative)
[2018-12-05 01:27] LABS: BUN/Creatinine Ratio 34.9 (8-20); Calcium 6.6 mg/dL (8.6-10.3); EGFR Non-African American 68.6 (>60); Potassium 2.9 mmol/L (3.5-5.0)
[2018-12-05 01:30] LABS: Urine Creatinine Concentration 16.76 mg/dL
[2018-12-05] MEDS ORDERED: KCL 20 MEQ/100 ML IVPREMIX* 20 MEQ/100 ML BAG IV SCH (02:00)
[2018-12-05] MEDS ORDERED: Potassium Chlor TAB* 20 MEQ TAB.ER PO ONE (02:09)
[2018-12-05] MEDS ORDERED: Potassium Chlor TAB* 10 MEQ TAB.ER PO ONE ×2 (02:09)
[2018-12-05 02:10] LABS: Magnesium 1.3 mg/dL (1.9-2.7)
[2018-12-05] MEDS ORDERED: Magnesium Sulfate IV* 3 GM in NS 0.9% 100 ML* 100 ML IVPB ONE (03:52)
[2018-12-05] MEDS ORDERED: NS 0.9% 100 ML* 100 ML ONE (04:43)
[2018-12-05 04:58] LABS: ABS Eosinophils 0.1 10^3/ul (0-0.6); ABS Lymphocytes 0.9 10^3/ul (1.0-4.8); ABS Monocytes 0.6 10^3/ul (0-0.8); Eosinophil % 1.8 %; Hematocrit 43 % (35-47); Hemoglobin 14.5 g/dL (12.0-16.0); Lymphocyte % 16.6 %; Mean Corpuscular HGB Conc 34 g/dL (31-36); Mean Corpuscular Hemoglobin 33 pg (27-31); Mean Corpuscular Volume 96 fL (80-97); Mean Platelet Volume 9.2 fL (7.4-10.4); Nucleated Red Blood Cells % 0.2; Platelet Count 176 10^3/uL (150-450); Red Blood Count 4.45 10^6 /uL (3.70-4.87); Red Cell Distribution Width 13 % (10.5-15); White Blood Count 5.7 10^3/uL (3.5-10.8)
[2018-12-05 05:06] LABS: BUN/Creatinine Ratio 29.7 (8-20); Calcium 9.1 mg/dL (8.6-10.3); EGFR African American 55.3 (>60); EGFR Non-African American 45.7 (>60); Magnesium 1.8 mg/dL (1.9-2.7)
[2018-12-05] MEDS ORDERED: Furosemide IV* 10 MG/ML 2 ML VIAL (20 MG) IV ONE (05:13)
--- NOTE | 2018-12-05 05:15 | PN ---
Progress Note - Progress Note Date of Service: 12/05/18 Note: Sodium went up to 124 after Lasix 20 mg, transferred to floor. AM BMP 119. Will give another Lasix 20 mg and repeat BMP in 4 hours. K repleted. Will replete more Mg
[2018-12-05] MEDS: Heparin VIAL(*) 5000 UNITS/ML VIAL (FIVE THOUSAND) SUBCUT SCH (05:42)
[2018-12-05] MEDS ORDERED: Magnesium Sulfate 1 GM IV* 1 GM/100 ML BAG IV ONE (05:45)
[2018-12-05] MEDS ORDERED: Levothyroxine TAB* 112 MCG TAB PO SCH (06:00)
[2018-12-05] MEDS ORDERED: Furosemide IV* 10 MG/ML 2 ML VIAL (20 MG) IV SCH (09:00)
[2018-12-05 09:01] VITALS: BP 100/72
[2018-12-05 10:09] LABS: BUN/Creatinine Ratio 28.3 (8-20); Calcium 9.5 mg/dL (8.6-10.3); EGFR African American 58.1 (>60); Potassium 3.7 mmol/L (3.5-5.0)
[2018-12-05] MEDS: Carvedilol TAB* 6.25 MG PO SCH (10:31)
--- NOTE | 2018-12-05 11:30 | CONS ---
CONSULTATION REPORT: DATE OF CONSULT: 12/05/18 PRIMARY COUNTER INTELLIGENCE TECHNICIAN: Dr. Wilson PRIMARY CARE PHYSICIAN: Dr. Tong ATTENDING PHYSICIAN: Dr. Jc Wilson, Cardiology* (dictated by Celina Bonds NP). CHIEF COMPLAINT: Low sodium, shortness of breath, increased leg swelling, increased weight gain and nausea/weakness. HISTORY OF PRESENT ILLNESS: I had the pleasure of seeing Kecia Hannah in consultation today. She is a patient well known to myself and Dr. Wilson due to a history of nonischemic cardiomyopathy, left ventricular end diastole 6.8 cm, EF 19% with severe mitral insufficiency via echocardiogram 11/01/18 that was performed at [facility]. At that time she was admitted for decompensated systolic dysfunction. She refused BiV ICD implantation. She has been progressively decompensating since that time. In fact, she was recently admitted on 11/27/18 due to decompensated systolic heart failure. She had a component of cardiogenic shock after IV diuresis, however refused transfer to [facility] at that time. Aldactone and Diovan therapy were discontinued due to hypotension. She refused LifeVest, however she was agreeable to BiV ICD implant on an outpatient basis with Dr. Bear which was arranged to be done on 12/10/18. She was supposed to have outpatient blood work obtained on Monday, however, she had blood work obtained yesterday 12/04/18. Sodium was critically low at 116 with complaints of shortness of breath, weakness, weight gain and edema. Thus she was directed to [facility] where she was evaluated in the Emergency Department. She was given 20 mg of IV Lasix, IV magnesium, IV potassium and hypertonic saline. Sodium initially improved, however this morning after administration of 20 mg IV Lasix, sodium is now 122. Again, it did improve from 116. Troponin has been negative. She was admitted for decompensated systolic heart failure with hyponatremia, hypervolemia, and we are asked to see the patient in consultation. She denies chest pain, dizziness, syncope. Does report shortness of breath, weakness, nausea, weight gain and increased edema. She admits to not being able to take her cardiac medications due to nausea and weakness. I have personally spoken to Dr. Bear, electrophysiology with [facility]. Unfortunately he is not on service today, however, he was going to arrange for patient to be transferred to [facility] today if patient is agreeable, given Class 4 heart failure with decompensation and need for BiV ICD. PAST MEDICAL HISTORY: Notable for: 1. Nonischemic cardiomyopathy. 2. Systolic heart failure. 3. Severe mitral insufficiency. 4. Dilated cardiomyopathy. 5. Hypothyroidism. 6. IBS. 7. Complete left bundle branch block. PAST SURGICAL HISTORY: Includes: 1. Breast reduction. 2. Tubal ligation. 3. Tonsillectomy and adenoidectomy. 4. Fibroid resection. HOME MEDICATIONS: Include: 1. Carvedilol 9.375 mg p.o. b.i.d. 2. Synthroid 112 micrograms a day. 3. Zetia 10 mg a day. 4. Torsemide 10 mg a day. 5. Compression stockings. 6. Vitamin B12 as directed. 7. Coenzyme Q10 100 mg a day. ALLERGIES: Include: 1. PENICILLIN. 2. ERYTHROMYCIN. 3. CODEINE. 4. IODINE. 5. BEE STINGS. 6. SULFA. 7. TETRACYCLINE. 8. MYCIN. 9. MORPHINE. 10. AZITHROMYCIN. 11. TORADOL. FAMILY HISTORY: Noncontributory. SOCIAL HISTORY: Patient is , lives at home with her who is a Neurologist practicing in [facility]. 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 She denies tobacco, alcohol or drub abuse. She ambulates independently although this has been altered due to weakness in the last couple of weeks. REVIEW OF SYSTEMS: All systems have been reviewed and otherwise negative except what is above mentioned in the HPI. PHYSICAL EXAM: Temperature 97.5, pulse 67, respirations 14, oxygenation 100% on room air, blood pressure 100/72. General: Patient is sitting in a chair, states that she is shortness of breath, otherwise offers no complaints. She does not appear to be in any distress. HEENT: Head is atraumatic, normocephalic. Oral mucosa is moist. Tongue is midline. Neck: Supple. Trachea midline. Positive JVD. No carotid bruits. Cardiac: Diminished S1, S2. Regular rate and rhythm. Positive mitral murmur with positive gallop. No rub noted. Lungs: Auscultated posteriorly, diminished in bilateral bases. Respirations are nonlabored. /GI: Abdomen is distended, firm, nontender, normoactive bowel sounds x4. Extremities: 2+ pretibial edema noted bilaterally. Otherwise no clubbing, no cyanosis. Skin: Intact. No evidence of jaundice, rashes or ecchymosis appreciated. DIAGNOSTIC STUDIES/LAB DATA: Blood work white count is 5.7, hemoglobin 14.5, hematocrit 43, platelets 176. INR 1.3. Sodium 122, potassium 3.7, chloride 86, carbon dioxide 26, BUN 32, creatinine 1.13, glucose 129. ECG from 12/04/18 revealed normal sinus rhythm with known complete left bundle branch block. Rate 75. Chest x-ray from 12/04/18 demonstrates bilateral pleural effusions. Appears to have progressed since 11/27/18. ASSESSMENT AND PLAN: 1. Decompensated systolic heart failure. LVEF 19%. NYHA functional Class 4 symptoms. Presenting with hyponatremia, hypervolemia. Agree with gentle diuresis and close observation of electrolytes. Given plan to BiV ICD implantation on 12/10/18 and recent suggestion for patient to be transferred to [facility] with refusal from patient last week, I spoke to Dr. Bear, electrophysiology. Unfortunately he is not on service, however he agreed that patient should be transferred to [facility]. He was going to speak with professional architect security dispatcher and arrange for transfer center to call me. At this current time continue to monitor on telemetry, continue gentle diuresis. Will make formal recommendations after I speak with transfer center and CCU attending at [facility]. 2. History of dilated cardiomyopathy. LVIDd 6.8 on 10/16/18 echocardiogram. 3. History of severe mitral insufficiency. LVEF 19%. Continue gentle diuresis. 4. History of complete left bundle branch block. Tentative date of BiV ICD implant was 12/10/[address] Bear. 5. Hyponatremia, hypervolemia. Agree with administration of gentle diuresis and close monitoring of electrolytes. 6. Disposition pending course. Patient is full code. Patient is agreeable to being transferred to [facility] at this time. Will await transfer center to contact me back. Dr. Granados was updated on plan of care. Dr. Wilson has personally seen and examined the patient and agrees with the above assessment and plan. CELINA BONDS, RFID SPECIALIST [id number]/[facility] #: [id number] BABAK
--- NOTE | 2018-12-05 12:36 | TRS ---
CC: Dr. Dick Tong; Dr. Wilson; Dr. Bear TRANSFER SUMMARY: DATE OF ADMISSION: 12/04/18 DATE OF TRANSFER: 12/05/18 PRIMARY CARE PROVIDER: Dr. Dick Tong. COLOR PASTE MIXING SUPERVISOR: Dr. Bear. FINAL DISCHARGE DIAGNOSES: 1. [id number] end-stage decompensated systolic heart failure with ejection fraction less than 20%. 2. Hyponatremia secondary to severe end-stage heart failure. ADDITIONAL DISCHARGE DIAGNOSES: 1. Left bundle-branch block. 2. Severe mitral regurgitation. 3. Hypothyroidism. 4. Chronic pain syndrome. 5. Kyphoscoliosis. HOSPITAL COURSE: The patient presented to [facility] after she recently was released after declining transfer to [facility] for cardiac pacemaker and defibrillator. She was discharged on 12/01/18 for similar presentation, where she presented with decompensated heart failure and hyponatremia. She presented on the evening of 12/04/18 for weakness and hyponatremia and was referred to the ER for readmission. In the emergency room , the patient did report increased fatigue, nausea with profound dyspnea on exertion, increased lower extremity edema and 11- pound weight increase since her discharge. There was no fever or chills. The patient did admit on admission that she has been skipping her torsemide due to her nausea. Her diagnostic workup in the ER was pertinent for sodium of 116, BNP greater than 1300, and serum osmolarity of 260. Her CBC was non-actionable. Lactic acid was normal and her magnesium was as low as 1.3 shortly after admission on routine lab followup. This morning when I arrived, I did speak with the patient after I was called that she was insisting of being released home or being transferred today and wanted to speak with her field attendant. At 8:15, Dr. Wilson was notified, who kindly came and evaluated and saw the patient with his nurse practitioner, Celina, who were able to convince the patient to stay and agreeable to be transferred at this time and she is able agreeable to have the pacemaker placed. The patient's blood work were repeated prior to her transfer as her sodium was as low as 119 and this morning at 9:24 is up to 122. Magnesium was corrected to 1.8; potassium remained 3.7, improved from 2.9. Therefore, I did deem the patient stable for discharge once bed available at CCU at [facility]. Celina was able to speak with Dr. Mendoza, the accepting physician and we are awaiting bed availability for transfer. TRANSFER MEDICATIONS: The patient will be transferred via ALS on the followin. Tylenol 650 q.4 hours p.r.n. 2. Maalox p.r.n. 3. Coreg 6.25 b.i.d. 4. Benadryl 50 at bedtime. 5. Zetia 10 at bedtime. 6. Heparin 5000 subcu q.8 hours. 7. Levoxyl 112 mcg daily. 8. Zofran p.r.n. 9. Status post Lasix on a daily basis 20 mg each, last dose was given 20 mg at 5 a.m. on 12/05/18. DISCHARGE CONDITION: Stable. DISCHARGE DISPOSITION: Transferred to [facility] CCU. INPATIENT CONSULTATION: Cardiology with Dr. Wilson. INPATIENT DIAGNOSTICS TEST: Chest x-ray from the ER reveals cardiomegaly with interstitial lung edema. [id number]/[facility] #: [id number] MTDD
[2018-12-05] MEDS ORDERED: Ezetimibe TAB* 10 MG PO SCH (17:00)
== END 2018-12-05 13:00 | disposition short-term general hospital (02) | DRG 425 ==
LOC: ED 18:06 → ICU 21:15 → MEDTELE 12-05 05:08
PROVIDERS: ADMIT Pediatrics; ATTEND Internal Medicine
DX: E87.1 Hypo-osmolality and hyponatremia (principal); I50.23 Acute on chronic systolic (congestive) heart failure; I42.8 Other cardiomyopathies; I34.0 Nonrheumatic mitral (valve) insufficiency; E03.9 Hypothyroidism, unspecified; K58.9 Irritable bowel syndrome, unspecified; I44.7 Left bundle-branch block, unspecified; F41.9 Anxiety disorder, unspecified; M48.00 Spinal stenosis, site unspecified; G89.4 Chronic pain syndrome; M41.9 Scoliosis, unspecified; Z98.51 Tubal ligation status; Z88.0 Allergy status to penicillin; Z88.1 Allergy status to other antibiotic agents; Z88.5 Allergy status to narcotic agent; Z88.2 Allergy status to sulfonamides; Z88.8 Allergy status to other drugs, medicaments and biological substances; Z97.4 Presence of external hearing-aid; Z82.49 Family history of ischemic heart disease and other diseases of the circulatory system; Z91.14 Patient's other noncompliance with medication regimen; Z79.01 Long term (current) use of anticoagulants
CPT/HCPCS: 36415; 71046; 80048; 80053; 81003; 82550; 82570; 83605; 83690; 83735; 83880; 83930; 83935; 84300; 84443; 84484; 85025; 85610; 85730; 86140; 93005; 99284; A9270-GY; J1644; J1940; J3475